=== PATIENT | female | born 1960 | race Caucasian/White ===

== ENCOUNTER 2018-04-19 07:01 | Emergency (ER) | payer OTHER ==
--- NOTE | 2018-04-19 07:14 | UC ---
Complaint Female HPI - HPI Summary HPI Summary: The patient is a 57-year-old female with the onset of dysuria urgency and frequency that started last p.m. She has had no fever or chills she denies any vomiting. She has mild suprapubic pain. She denies any back pain. - History Of Current Complaint Stated Complaint: POSS UTI Time Seen by Provider: 04/19/18 07:08 Hx Obtained From: Patient Onset/Duration: Gradual Onset, Lasting Hours Timing: Intermittent, Lasting Seconds Severity Initially: Moderate Severity Currently: Moderate Pain Intensity: 5 - when noiding - Allergies/Home Medications Allergies/Adverse Reactions: Allergies Allergy/AdvReac Type Severity Reaction Status Date / Time No Known Allergies Allergy Verified 04/19/18 07:15 Home Medications: Home Medications Cranberry Conc/C/Bacill Coag [Azo Cranberry Tablet] 04/19/18 [History] PMH/Surg Hx/FS Hx/Imm Hx Previously Healthy: Yes - Family History Known Family History: Positive: Hypertension Review of Systems All Other Systems Reviewed And Are Negative: Yes Constitutional: Positive: Negative Skin: Positive: Negative Eyes: Positive: Negative ENT: Positive: Negative Respiratory: Positive: Negative Cardiovascular: Positive: Negative Gastrointestinal: Positive: Negative Genitourinary: Positive: Dysuria, Frequency, Urgency Motor: Positive: Negative Neurovascular: Positive: Negative Musculoskeletal: Positive: Negative Neurological: Positive: Negative Psychological: Positive: Negative Physical Exam Triage Information Reviewed: Yes Appearance: Well-Appearing, No Pain Distress, Well-Nourished Vital Signs Reviewed: Yes Eyes: Positive: Conjunctiva Clear ENT: Positive: Hearing grossly normal. Negative: Nasal congestion, Nasal drainage, Trismus, Muffled voice, Hoarse voice Neck: Positive: Supple Respiratory: Positive: Lungs clear, Normal breath sounds, No respiratory distress Cardiovascular: Positive: RRR, No Murmur Abdomen Description: Positive: Nontender, No Organomegaly. Negative: CVA Tenderness (R), CVA Tenderness (L) Bowel Sounds: Positive: Present Musculoskeletal: Positive: No Edema Neurological: Positive: Alert Psychological Exam: Normal Skin Exam: Normal Complaint Female Dx - Course Course Of Treatment: unable to do UA due to azo - Differential Dx/Diagnosis Provider Diagnosis: UTI (urinary tract infection) Discharge - Sign-Out/Discharge Documenting (check all that apply): Patient Departure All imaging exams completed and their final reports reviewed: No Studies - Discharge Plan Condition: Stable Disposition: HOME Prescriptions: Ciprofloxacin TAB* [Cipro 250 MG Tab*] 250 mg PO BID #10 tab Phenazopyridine TAB* [Pyridium TAB*] 100 mg PO TID #6 tab Patient Education Materials: Urinary Tract Infection in Women (ED) Referrals: Joe Moon [Primary Care Provider] - If Needed Additional Instructions: recheck in 2-3 days if not better - Billing Disposition and Condition Condition: STABLE Disposition: Home
[2018-04-19 07:15] VITALS: BP 136/49
[2018-04-19] MEDS ORDERED: Phenazopyridine TAB* 100 MG PO ONE (07:22)
[2018-04-19] MEDS ORDERED: Ciprofloxacin TAB* 500 MG PO ONE (07:22)
== END 2018-04-19 07:32 | disposition home or self-care (01) ==
LOC: UCEAST 07:01
DX: N39.0 Urinary tract infection, site not specified (principal)
CPT/HCPCS: 87077; 87086; 87186; 99212; A9270-GY; G0463